=== PATIENT | male | born 1965 | race Caucasian/White ===

== ENCOUNTER → 2020-08-04 00:01 | Outpatient (BNVA) | payer MEDICAID, SELFPAY | PROVIDERS: Visit Provider Nurse Practitioner Family | DX: Z79.899 Other long term (current) drug therapy (principal); B37.2 Candidiasis of skin and nail; B35.4 Tinea corporis | CPT/HCPCS: 80053 ==

== ENCOUNTER → 2020-08-20 08:27 | Outpatient (BNVA) | payer MEDICAID, SELFPAY | PROVIDERS: Visit Provider Nurse Practitioner Family | DX: R17 Unspecified jaundice (principal) | CPT/HCPCS: 80053 ==